=== PATIENT | male | born 2000 | race Hispanic/Latino ===

== ENCOUNTER → 2019-08-13 | Outpatient (CLI) | payer OTHER ==
--- NOTE | 2019-08-13 17:35 | REP ---
RENAL NUCLEAR SCAN WITH FLOW AND FUNCTION: Following the intravenous administration of 8.8 mCi of technetium 99m MAG3 immediate flow images are obtained in the posterior projection, showing a greater degree of perfusion of the left kidney compared to the right. Delayed renal function images are performed showing apparent right renal atrophy with delayed nephrogram. There is somewhat delayed excretion in the right pelvicaliceal system. Moderate right hydronephrosis is present. There is mild left hydronephrosis. Split function is 70.1% on the left and 29.9% on the right. Time to peak is in the range of 1 minute bilaterally. T-1/2 on the left is normal at 6.3 minutes. T-1/2 on the right is elevated at 16.7 minutes. Renal function curve for the left kidney appears relatively normal while for the right kidney amplitude is low and downward slope is significantly shallow. There is mild postvoid residual after voiding. The mild left hydronephrosis improves after voiding while the moderate right hydronephrosis does not change. IMPRESSION: Mild right renal atrophy. Moderate right hydronephrosis. Mild to moderately compromised renal function on the right. Left renal function is essentially normal with mild hydronephrosis improving after voiding. Electronically Signed by Curly Liriano MD 08/15/2019 04:29 P
== END ==
LOC: M RAD 10:18
PROVIDERS: ATTEND Physician Assistant
DX: N13.0 Hydronephrosis with ureteropelvic junction obstruction (principal)
CPT/HCPCS: 78707; A9562

== ENCOUNTER 2019-12-20 23:49 | Emergency (ER) | payer OTHER ==
[~2019-12-20] VITALS: Ht 165.1 cm; Wt 69.9 kg
[2019-12-20] MEDS ORDERED: IBUP200T45 PO (23:54)
[2019-12-21 00:29] LABS: BASO % 0.4 % (0.0-1.0); EOS # 0.1 10^3/uL (0.0-0.5); EOS % 1.1 % (0.0-3.0); HEMOGLOBIN 15.7 g/dl (13.5-17.5); LYMPH # 2.4 10^3/uL (1.5-5.0); LYMPH % 28.7 % (24.0-44.0); MEAN CORPUSCULAR HEMOGLOBIN 29.3 pg (27.0-33.0); MEAN CORPUSCULAR HGB CONC 33.4 g/dl (32.0-36.5); MEAN CORPUSCULAR VOLUME 87.9 fl (80.0-96.0); MONO # 0.6 10^3/uL (0.0-0.8); MONO % 6.5 % (0.0-5.0); NEUTROPHILS # 5.3 10^3/uL (1.5-8.5); NEUTROPHILS % 63.1 % (36.0-66.0); PLATELET COUNT, AUTOMATED 192 10^3/uL (150-450); RED BLOOD COUNT 5.35 10^6/uL (4.30-6.10); WHITE BLOOD COUNT 8.4 10^3/uL (4.0-10.0)
[2019-12-21] MEDS ORDERED: KETOROLAC 30 MG/ML VIAL (J1885) As Ordered ONE (00:36)
[2019-12-21] MEDS ORDERED: ONDANSETRON 4MG/2ML VIAL (J2405) IV ONE (00:45)
[2019-12-21] MEDS ORDERED: KETOROLAC 30 MG/ML VIAL (J1885) IV ONE (00:45)
[2019-12-21 00:56] LABS: ALBUMIN 4.5 GM/DL (3.2-5.2); ALT/SGPT 44 U/L (12-78); BILIRUBIN,DIRECT 0.2 MG/DL (0.0-0.2); BILIRUBIN,TOTAL 0.6 MG/DL (0.2-1.0); BLOOD UREA NITROGEN 16 MG/DL (7-18); CALCIUM LEVEL 9.3 MG/DL (8.5-10.1); CARBON DIOXIDE LEVEL 26 MEQ/L (21-32); CHLORIDE LEVEL 108 MEQ/L (98-107); CREATININE FOR GFR 1.26 MG/DL (0.70-1.30); GLUCOSE, FASTING 105 MG/DL (70-100); LIPASE 98 U/L (73-393); POTASSIUM SERUM 3.8 MEQ/L (3.5-5.1); SODIUM LEVEL 140 MEQ/L (136-145); TOTAL PROTEIN 7.2 GM/DL (6.4-8.2)
--- NOTE | 2019-12-21 01:15 | REPVR ---
PROCEDURE INFORMATION: Exam: CT Abdomen And Pelvis Without Contrast Exam date and time: 12/21/2019 12:31 AM Age: 19 years old Clinical indication: Abdominal pain; Flank; Prior surgery; Surgery date: Post-operative (0-2 days); Surgery type: Right renal stent removal; Additional info: Right flank pain TECHNIQUE: Imaging protocol: Computed tomography of the abdomen and pelvis without contrast. Radiation optimization: All CT scans at this facility use at least one of these dose optimization techniques: automated exposure control; mA and/or kV adjustment per patient size (includes targeted exams where dose is matched to clinical indication); or iterative reconstruction. COMPARISON: NM-Kidney Scan w/Flow/Function 08/13/2019 10:24 AM FINDINGS: Limited evaluation without enteric or IV contrast. Lungs: No suspicious mass or airspace process in the visualized lung bases. Liver: Noncontrast liver shows no obvious lesion. Gallbladder and bile ducts: Gallbladder is present and shows no evidence of gallstone. Pancreas: Noncontrast pancreas shows no obvious mass or adjacent fluid. Spleen: Noncontrast spleen shows no obvious focal deformity. Adrenals: Adrenal glands are normal in appearance. Kidneys and ureters: Left kidney demonstrates no stone or obstruction. Right kidney demonstrates collecting system and renal pelvis dilatation without apparent stone, possibly a chronic UPJ obstruction. Stomach and bowel: No evidence of small bowel obstruction. No evidence of acute diverticulitis. Appendix: Normal caliber appendix is identified, with no adjacent inflammation. Intraperitoneal space: No pneumoperitoneum. Vasculature: No aortic aneurysm. Lymph nodes: No enlarged lymph nodes. Bladder: Urinary bladder appears normal. Bones/joints: Bony structures show no acute fracture or destructive process. IMPRESSION: Moderately severe right renal collecting system and renal pelvis dilatation without stone. This may be a UPJ obstruction chronic, or related to scarring from prior stent. Electronically signed by: Mario Chirinos On 12/21/2019 01:15:06 AM
[2019-12-21] MEDS ORDERED: MORPHINE 4 MG/ML 1ML VIAL/SYRINGE (J2270) IV PRN (02:45)
[2019-12-21] MEDS ORDERED: FLOM0.4C39 PO (04:12)
[2019-12-21] MEDS ORDERED: PERC5TAB12 PO (04:12)
[2019-12-21] MEDS ORDERED: OXYCODONE/APAP 5MG/325MG(BULK FOR ED) 1 TABLET PO ONE (04:15)
[2019-12-21] MEDS ORDERED: TAMSULOSIN 0.4 MG CAP PO ONE (04:15)
[2019-12-21 04:35] VITALS: BP 141/94
--- NOTE | 2019-12-21 07:35 | ED PDOC ---
Post-Departure Follow-Up additionally zulema singh faxed formal report of ct abd/p for fu Shilpa Bernard MD Dec 21, 2019 07:35
== END 2019-12-21 04:36 | disposition home or self-care (01) ==
LOC: M ED 23:49
DX: N13.30 Unspecified hydronephrosis (principal); F17.200 Nicotine dependence, unspecified, uncomplicated
CPT/HCPCS: 74176; 80053; 81001; 83690; 85025; 96374; 96375; 99284; J1885; J2270; J2405

== ENCOUNTER → 2020-01-27 | Outpatient (CLI) | payer OTHER ==
[~2020-01-27] MED LIST: FLOM0.4C39 PO; FUROSEMIDE 20 MG/2 ML VIAL (J1940) As Ordered ONE; IBUP200T45 PO; PERC5TAB12 PO
--- NOTE | 2020-01-27 10:21 | REP ---
RADIONUCLIDE RENAL SCINTIGRAPHY WITH DIFFERENTIAL FLOW AND FUNCTION ANALYSIS AND PRE- AND POST- LASIX WASHOUT VENOGRAPHY: HISTORY: Hydronephrosis. COMPARISON: Nuclear scintigraphy August 13, 2019. Comparison CT study December 21, 2019. Recent CT study showed severe hydronephrosis of the right kidney with a rounded markedly dilated renal pelvis consistent with ureteropelvic junction obstruction without stone. The patient is status post right ureteral stent placement. TECHNIQUE: A 8.3 mCi technetium 99m Mag 3 is injected and posterior flow and excretory phase images are acquired. Renal cortical regions of interest are drawn and time activity curves are plotted for renal function analysis. 20 mg of intravenous Lasix is given and Lasix venography is carried out. SCINTIGRAPHIC FINDINGS: Posterior flow study shows normal symmetric perfusion. Although not delayed, perfusion is somewhat less vigorous to the right kidney. On excretory phase images, there is a delayed nephrogram on the right and the right renal cortex appears somewhat smaller than the left renal cortex. Intrarenal collecting system is labeled on both kidneys on the 2-minute image. The degree of hydronephrosis is much improved from the December 16, 2019 study. There is mild fullness of the intrarenal collecting system on the left. Pre- and postvoid images show no evidence of significant upper tract collecting system retention on either side. Post Lasix washout curves appear normal bilaterally. The [id number] Lasix activity is 10 minutes on the left and 15 minutes on the right. Initial differential renal function analysis is asymmetric with 38% of overall renal cortical counts coming from the right kidney and 62% from the left. The [id number] activity is normal on the left at 2 minutes and the slightly delayed on the right at 4.0 minutes. Dhkv-lq-fljt max activity is normal bilaterally measured at 8.3 minutes on the left and 9.0 minutes on the right. IMPRESSION: Normal excretion curves. No evidence of obstructive uropathy patient status post right ureteral stent. Improved hydronephrosis. Somewhat decreased perfusion to the right kidney. Right renal atrophy. Electronically Signed by Aiden Azul MD 01/27/2020 01:02 P
== END ==
LOC: M RAD 07:38
PROVIDERS: ATTEND Specialist
DX: N13.0 Hydronephrosis with ureteropelvic junction obstruction (principal); N26.1 Atrophy of kidney (terminal); Z96.0 Presence of urogenital implants
CPT/HCPCS: 78708; A9562; J1940

== ENCOUNTER 2020-04-22 12:08 | Emergency (ER) | payer OTHER ==
[~2020-04-22] VITALS: Ht 170.2 cm; Wt 69.0 kg
[~2020-04-22 12:08] MED LIST changes: -FUROSEMIDE 20 MG/2 ML VIAL (J1940) As Ordered ONE
[2020-04-22] MEDS ORDERED: ACET-683 PO (12:14)
[2020-04-22] MEDS ORDERED: KETOROLAC 30 MG/ML 1ML VIAL IV ONE (13:30)
[2020-04-22] MEDS ORDERED: NS 1,000 ML IV ONE (13:30)
[2020-04-22 13:51] LABS: BASO % 0.5 % (0.0-1.0); EOS # 0.2 10^3/uL (0.0-0.5); EOS % 2.4 % (0.0-3.0); HEMATOCRIT 44.5 % (42.0-52.0); HEMOGLOBIN 15.7 g/dl (13.5-17.5); LYMPH # 1.6 10^3/uL (1.5-5.0); MEAN CORPUSCULAR HGB CONC 35.3 g/dl (32.0-36.5); MEAN CORPUSCULAR VOLUME 87.9 fl (80.0-96.0); MONO # 0.6 10^3/uL (0.0-0.8); NEUTROPHILS # 3.9 10^3/uL (1.5-8.5); NEUTROPHILS % 61.8 % (36.0-66.0); PLATELET COUNT, AUTOMATED 178 10^3/uL (150-450); RED BLOOD COUNT 5.06 10^6/uL (4.30-6.10); WHITE BLOOD COUNT 6.2 10^3/uL (4.0-10.0)
--- NOTE | 2020-04-22 14:17 | REP ---
KUB ABDOMEN/PELVIS: KUB film of abdomen/pelvis is performed. Bowel gas pattern is normal. A right ureteral stent is seen and appears to be in good position with the proximal end overlying the right renal collecting system and the distal end overlying the urinary bladder. No abnormal calcifications are seen. The visualized osseous structures are unremarkable. IMPRESSION: Right ureteral stent appears to be in good position. Electronically Signed by Curly Liriano MD 04/22/2020 02:43 P
[2020-04-22 14:18] LABS: ALBUMIN 4.2 GM/DL (3.2-5.2); ALT/SGPT 25 U/L (12-78); BILIRUBIN,DIRECT 0.3 MG/DL (0.0-0.2); BILIRUBIN,TOTAL 0.8 MG/DL (0.2-1.0); BLOOD UREA NITROGEN 15 MG/DL (7-18); CALCIUM LEVEL 8.9 MG/DL (8.5-10.1); CARBON DIOXIDE LEVEL 28 MEQ/L (21-32); CHLORIDE LEVEL 107 MEQ/L (98-107); CREATININE FOR GFR 0.92 MG/DL (0.70-1.30); GLUCOSE, FASTING 84 MG/DL (70-100); POTASSIUM SERUM 3.8 MEQ/L (3.5-5.1); SODIUM LEVEL 137 MEQ/L (136-145); TOTAL PROTEIN 7.1 GM/DL (6.4-8.2)
--- NOTE | 2020-04-22 14:25 | REP ---
RENAL ULTRASOUND: Real-time sonographic evaluation of kidneys performed. Kidneys are normal in size and echotexture, right kidney measuring 9.9 x 5.5 x 4.9 cm and left kidney 11.2 x 5.7 x 4.7 cm. There is moderate right hydronephrosis. A ureteral stent is seen with the proximal end in the right renal pelvis and the distal end in the right side of the bladder. There is no left hydronephrosis. No definite renal calculus or mass is seen. AP diameter of the right renal pelvis is 28 mm. IMPRESSION: Moderate right hydronephrosis. Right ureteral stent is visualized with the proximal end in the right renal pelvis and the distal end in the right side of the urinary bladder. No left hydronephrosis. Electronically Signed by Curly Liriano MD 04/22/2020 02:44 P
[2020-04-22 15:22] VITALS: BP 129/73
== END 2020-04-22 15:25 | disposition home or self-care (01) ==
LOC: M ED 12:08
DX: N23 Unspecified renal colic (principal); R31.29 Other microscopic hematuria; N13.39 Other hydronephrosis; Z87.442 Personal history of urinary calculi
CPT/HCPCS: 36415; 74018; 76775; 80048; 80076; 81001; 85025; 87086; 96361; 96374; 99284; J1885